=== PATIENT | male | born 1950 | race Caucasian/White ===

== ENCOUNTER 2020-08-17 16:07 | Outpatient (CLI) | payer MEDICARE, OTHER | END 2020-08-17 16:08 | disposition critical access hospital (66) | LOC: EMS 16:07 | DX: R41.82 Altered mental status, unspecified (principal) | CPT/HCPCS: A0425; A0429 ==

== ENCOUNTER 2020-08-17 16:22 | Emergency (ER) | payer MEDICARE, OTHER ==
--- NOTE | 2020-08-17 16:42 | ED Physician Documentation ---
PD HPI ALTERED MENTAL STATUS - Stated complaint Stated Complaint: AMS - Chief complaint Chief Complaint: Neuro - History obtained from History obtained from: Patient, EMS - Additional information Additional information: 69-year-old gentleman presents by ambulance. History is difficult due to aphasia. No prior records in our computer system. He says he has been like this for 8 days. He complains of word finding difficulty confusion and headache. He seems to think it started after he was exposed to chlorine fumes when he was cleaning a pool, again all of this history is a little suspect becau se of difficulty in history making taking. Evidently then he went to an urgent care and was referred here for further evaluation and treatment. Review of Systems Constitutional: reports: Reviewed and negative Eyes: reports: Reviewed and negative Ears: reports: Reviewed and negative Nose: reports: Reviewed and negative Throat: reports: Reviewed and negative Cardiac: reports: Reviewed and negative Respiratory: reports: Reviewed and negative PD ED PE NORMAL - Vitals Vital signs reviewed: Yes - General General: No acute distress, Other (He is alert and oriented to person, when asked him the month and date he states it is July, he cannot come up with a year but then spells July. He is clearly frustrated by his aphasia.) - HEENT HEENT: PERRL, EOMI - Neck Neck: Supple, no meningeal sign, No bony TTP - Cardiac Cardiac: RRR, No murmur - Respiratory Respiratory: No respiratory distress, Clear bilaterally - Abdomen Abdomen: Non tender - Back Back: No CVA TTP, No spinal TTP - Derm Derm: Normal color, Warm and dry - Extremities Extremities: No edema, No calf tenderness / cord - Neuro Eye Opening: Spontaneous Motor: Obeys Commands Verbal: Confused GCS Score: 14 NIHSS - Time Time: 16:30 - Level of Consciousness Level of consciousness: (0) Alert, Keenly responsive LOC Questions: (1) Answers one Q correctly LOC Commands: (0) Performs both correctly - Gaze Best Gaze: (0) Normal - Visual Visual: (0) No loss - Facial Palsy Facial Palsy: (0) Normal, symmetrical movement - Motor Arms (both separate) Motor Arm (right): (0) No drift Motor Arm (left): (0) No drift - Motor Legs (both separate) Motor Leg (right): (0) No drift Motor Leg (left): (0) No drift - Limb Ataxia Limb Ataxia: (0) Absent - Sensory Sensory: (0) Normal - Best Language Best Language: (2) Severe aphasia - Dysarthria Dysarthria: (0) Normal - Extinction and Inattention (formally neg Extinction and inattention: (0) No abnormality - Total Score/Results Total Score/Result: 3 Results - Vitals Vitals: Vital Signs - 24 hr 08/17/20 08/17/20 08/17/20 16:24 16:27 16:30 Temperature 37.1 C Heart Rate 70 73 73 Respiratory 21 14 14 Rate Blood Pressure 173/104 H 172/103 H 173/104 H O2 Saturation 96 96 96 08/17/20 08/17/20 08/17/20 17:06 17:10 17:30 Temperature Heart Rate 73 73 73 Respiratory 20 22 20 Rate Blood Pressure 169/104 H 169/104 H 180/96 H O2 Saturation 96 97 96 08/17/20 08/17/20 08/17/20 17:32 17:33 17:41 Temperature Heart Rate 72 71 67 Respiratory 19 20 23 Rate Blood Pressure 166/125 H 180/96 H 160/97 H O2 Saturation 96 96 96 08/17/20 08/17/20 08/17/20 17:44 17:48 17:49 Temperature Heart Rate 73 81 78 Respiratory 14 21 18 Rate Blood Pressure 166/97 H 156/90 H 154/84 H O2 Saturation 94 95 96 08/17/20 17:54 Temperature Heart Rate 81 Respiratory 80 H Rate Blood Pressure 141/87 H O2 Saturation 27 L Oxygen O2 Source Room air - Labs Labs: Laboratory Tests 08/17/20 08/17/20 08/17/20 16:48 16:48 16:48 WBC 7.6 RBC 5.04 Hgb 14.7 Hct 44.8 MCV 88.9 MCH 29.2 MCHC 32.8 RDW 14.1 Plt Count 325 MPV 9.3 Neut # (Auto) 4.3 Lymph # (Auto) 2.2 [place] # (Auto) 0.8 Eos # (Auto) 0.3 Baso # (Auto) 0.0 Absolute Nucleated RBC 0.00 Nucleated RBC % 0.0 PT INR Sodium 136 Potassium 3.7 Chloride 97 L Carbon Dioxide 25 Anion Gap 14.0 H BUN 16 Creatinine 1.0 Estimated GFR (MDRD) 74 L Glucose 111 H Calcium 9.1 Magnesium 2.1 Total Bilirubin 0.9 AST 26 ALT 19 Alkaline Phosphatase 84 Total Protein 7.7 Albumin 4.4 Globulin 3.3 Albumin/Globulin Ratio 1.3 TSH 2.44 Ethyl Alcohol < 5.0 08/17/20 17:12 WBC RBC Hgb Hct MCV MCH MCHC RDW Plt Count MPV Neut # (Auto) Lymph # (Auto) [place] # (Auto) Eos # (Auto) Baso # (Auto) Absolute Nucleated RBC Nucleated RBC % PT 13.9 H INR 1.3 H Sodium Potassium Chloride Carbon Dioxide Anion Gap BUN Creatinine Estimated GFR (MDRD) Glucose Calcium Magnesium Total Bilirubin AST ALT Alkaline Phosphatase Total Protein Albumin Globulin Albumin/Globulin Ratio TSH Ethyl Alcohol PD MEDICAL DECISION MAKING - ED course ED course: -year-old gentleman presents with acute word finding difficulties and complaints of headache. Neurologic exam mostly with word finding difficulties, GCS waxing and waning between [address] of the brain showing a 2.6 x 3.5 x 2.2 left temporal intraparenchymal hemorrhage with likely some other smaller areas of edema and subarachnoid hemorrhage. He was started on a nicardipine drip for blood pressure control. He was accepted to [facility] by Dr. Alzia Jay at 6 PM. [place] were completed and [facility] was activated. - Critical Care Time(min): 60 Time Includes: Direct patient care, Review records, Reassess patient, Document care, Coordinate care, Medical consult Data interpretation: Labs, Pulse ox Procedures excluded from critical care time: EKG Departure - Departure Disposition: 02 Transfer Acute Care Hosp Clinical Impression: Intraparenchymal hemorrhage of brain Condition: Critical
[2020-08-17] MEDS ORDERED: IOVERSOL 320 100 ML VIAL IVP ONE ×2 (16:48→17:15)
[2020-08-17 16:57] LABS: BASOPHILS % (AUTO) 0.5 %; EOSINOPHILS # (AUTO) 0.3 10^3/uL (0.0-0.7); EOSINOPHILS % (AUTO) 3.4 %; HCT - HEMATOCRIT 44.8 % (42.0-52.0); HGB - HEMOGLOBIN 14.7 g/dL (14.0-18.0); LYMPHOCYTES # (AUTO) 2.2 10^3/uL (1.5-3.5); LYMPHOCYTES % (AUTO) 28.4 %; MEAN CORPUSCULAR HEMOGLOBIN 29.2 pg (27.0-31.0); MEAN CORPUSCULAR HGB CONC 32.8 g/dL (32.0-36.0); MEAN CORPUSCULAR VOLUME 88.9 fL (80.0-94.0); MEAN PLATELET VOLUME 9.3 fL (7.4-11.4); MONOCYTES # (AUTO) 0.8 10^3/uL (0.0-1.0); MONOCYTES % (AUTO) 10.3 %; NEUTROPHILS # (AUTO) 4.3 10^3/uL (1.5-6.6); NEUTROPHILS % (AUTO) 57.3 %; PLT - PLATELET COUNT 325 10^3/uL (130-450); RED BLOOD COUNT 5.04 10^6/uL (4.70-6.10); RED CELL DISTRIBUTION WIDTH 14.1 % (12.0-15.0); WHITE BLOOD COUNT 7.6 x10^3/uL (4.8-10.8)
[2020-08-17 17:06] LABS: ALBUMIN 4.4 g/dL (3.2-5.5); ALBUMIN/GLOBULIN RATIO 1.3 (1.0-2.2); ALKALINE PHOSPHATASE 84 IU/L (42-121); ALT ALANINE AMINOTRANSFERASE 19 IU/L (10-60); AST ASPARTATE AMINOTRANSFERASE 26 IU/L (10-42); BILIRUBIN,TOTAL 0.9 mg/dL (0.2-1.0); BUN - BLOOD UREA NITROGEN 16 mg/dL (6-20); CALCIUM 9.1 mg/dL (8.5-10.3); CARBON DIOXIDE - CO2 25 mmol/L (21-32); CHLORIDE 97 mmol/L (101-111); ETOH - ETHANOL < 5.0 mg/dL; GFR - MDRD 74 (>89); GLUCOSE 111 mg/dL (70-100); MAGNESIUM 2.1 mg/dL (1.7-2.8); POTASSIUM 3.7 mmol/L (3.5-5.0); SODIUM 136 mmol/L (135-145); TOTAL PROTEIN 7.7 g/dL (6.7-8.2)
[2020-08-17 17:28] LABS: INR 1.3 (0.8-1.2); PT - PROTHROMBIN TIME 13.9 secs (9.9-12.6)
--- NOTE | 2020-08-17 17:33 | CT Report ---
PROCEDURE: ANGIO HEAD W/WO INDICATIONS: cva sx CONTRAST: IV CONTRAST: Optiray 320 ml: 80 PO CONTRAST: *NO PO CONTRAST TECHNIQUE: Precontrast 4.5 mm thick angled axial sections acquired from the foramen magnum to the vertex. Afte r the administration of intravenous contrast, 1 mm thick sections acquired through the [place] of [place] is. Postcontrast 4.5 mm thick sections then re-acquired from the foramen magnum to the vertex. 3-di mensional fiwmevl-cjsjptcek-qoqjzdcwif (MIP) and/or volume rendering reformats were acquired of the c entral intracranial vasculature. For radiation dose reduction, the following was used: automated ex posure control, adjustment of mA and/or kV according to patient size. COMPARISON: CTA neck from the same date FINDINGS: Image quality: Excellent. Anterior circulation: Intracranial internal carotid arteries are normal in size and flow. The flow within the paired anterior cerebral arteries is normal and symmetric. The flow within the middle cer ebral arteries is normal and symmetric. The anterior communicating artery is seen. No aneurysms are seen. Posterior circulation: Visualized portions of the vertebral arteries demonstrate normal caliber, and join to form a normal appearing basilar artery. Flow within the posterior cerebral arteries is norm al and symmetric. No aneurysms are seen. CSF spaces: Temporal horn of left lateral ventricle is compressed by subjacent parenchymal hematoma. Ventricles otherwise normal in size. There is mild midline shift measuring approximately 4 mm. Basal cisterns are patent. No extra-axial fluid collections. Brain: There is an acute parenchymal hemorrhage involving the left temporal lobe measuring approximat wimler 2.6 x 3.5 x 2.2 cm. There is associated vasogenic edema and mass effect on the temporal horn of t he left lateral ventricle. There is questionable mild narrowing of the left ambient cistern. There is also subtle parenchymal hemorrhage involving the left occipital lobe and possible subarachnoid hemor rhage. No mass lesions are identified. Age-related volume loss and mild small vessel ischemic change. Skull and face: Calvarium and facial bones appear intact, without suspicious lesions. Sinuses: Visualized sinuses and mastoids are clear. IMPRESSION: 1. 3.5 cm maximum diameter left anterior temporal parenchymal hematoma with vasogenic edema and mass effect on the temporal horn of the left lateral ventricle. There is mild narrowing of the left ambien t cistern and minimal midline shift. 2. Subtle left occipital parenchymal hematoma and probable subarachnoid hemorrhage. 3. No arterial vascular abnormalities identified. Above discussed with emergency Department on 08/17/2020 at [address] [place] [address] Dr. Rehana delacruz was aware of the parenchymal hemorrhage, and was in the process of notifying [facility]. Reviewed by: Andrew Hatfield MD on 08/17/2020 4:32 PM AKSULY Approved by: Andrew Hatfield MD on 08/17/2020 4:32 PM AKDT Station ID: [id number]
--- NOTE | 2020-08-17 17:34 | XRAY Report ---
PROCEDURE: Chest 1 View X-Ray INDICATIONS: ams TECHNIQUE: One view of the chest was acquired. COMPARISON: None FINDINGS: Surgical changes and devices: Right shoulder arthroplasty. Lungs and pleura: No pleural effusions or pneumothorax. Mild patchy bilateral perihilar and basilar opacity. Mediastinum: Mediastinal contours appear normal. Heart size is normal. Bones and chest wall: No suspicious bony lesions. Overlying soft tissues appear unremarkable. IMPRESSION: Mild bilateral pneumonia versus atelectasis. Reviewed by: Tiffanie Rashid MD on 08/17/2020 5:32 PM PDT Approved by: Tiffanie Rashid MD on 08/17/2020 5:32 PM PDT Station ID: [id number]
--- NOTE | 2020-08-17 17:43 | CT Report ---
PROCEDURE: ANGIO NECK W INDICATIONS: cva sx CONTRAST: IV CONTRAST: Optiray 320 ml: 80 PO CONTRAST: *NO PO CONTRAST TECHNIQUE: After the administration of intravenous contrast, 1.5 mm axial sections acquired from the aortic arch to the [place] of [place]. Coronal 3-D maximum intensity projection (MIP) and/or volume rendering ref ormats were then performed. For radiation dose reduction, the following was used: automated exposur e control, adjustment of mA and/or kV according to patient size. COMPARISON: CT angiogram of the head from the same day, which demonstrates the presence of a left te mporal lobe hematoma and a subtle left occipital hemorrhage and probable subarachnoid hemorrhage. FINDINGS: Image quality: Excellent. Carotid system: The great vessels demonstrate a conventional anatomy as they arise from the aortic a rch. The origins of the common carotid arteries appear patent. The common carotid arteries demonstr ate normal calibers and courses. The bifurcation regions appear normal bilaterally. The internal ca rotid arteries demonstrate normal caliber and course. Posterior circulation: The origins of the vertebral arteries appear patent. The more superior porti ons of the vertebral arteries demonstrate normal course and caliber. They join to form a normal appe aring basilar artery. Soft tissues: Visualized neck soft tissues demonstrate no suspicious abnormalities. The thyroid is normal in size and there are no incidental findings. Bones: No suspicious bony lesions. Visualized cervical spine appears normally aligned. Severe cervi miguel spondylosis. Canal stenosis at C5-C6 and C6-C7. Severe foraminal narrowing bilaterally at C5-C6, C6-C7, and C7-T1. IMPRESSION: 1. Please refer to separate report for discussion of CTA Head findings. Of note, there is a left temp oral lobe hematoma, a subtle left occipital hemorrhage, and probable subarachnoid hemorrhage 2. Unremarkable CTA neck. Widely patent internal carotids. 3. Severe cervical spondylosis with multilevel canal stenosis and foraminal stenosis. The estimate of stenosis included in the report of the imaging study was calculated using the NASCET method CLINICAL RECOMMENDATION STATEMENTS: In patients <35 years with an ITN detected on CT, MRI, or extrathyroidal ultrasound, the Committee re commends further evaluation with dedicated thyroid ultrasound if the nodule is ?1 cm and has no suspi cious imaging features, and if the patient has normal life expectancy. In patients ?35 years with an ITN detected on CT, MRI, or extrathyroidal ultrasound, the Committee re commends further evaluation with dedicated thyroid ultrasound if the nodule is ?1.5 cm and has no yoel picious imaging features, and if the patient has normal life expectancy. (ACR, 2014) Reviewed by: Andrew Hatfield MD on 08/17/2020 4:36 PM MANAV Approved by: Andrew Hatfield MD on 08/17/2020 4:36 PM MANAV Station ID: [id number]
[2020-08-17] MEDS ORDERED: CLEVIDIPINE BUTYRATE 25 MG/50 ML BOTTLE IV SCH (18:00)
[2020-08-17 18:03] VITALS: BP 148/81
[2020-08-17 18:08] LABS: B. PARAPERTUSSIS- RESP PCR PAN NOT DETECTED; B. PERTUSSIS- RESP PCR PANEL NOT DETECTED; C. PNEUMONIAE- RESP PCR PANEL NOT DETECTED; CORONAVIRUS 229E-RESP PCR NOT DETECTED; CORONAVIRUS HKU1-RESP PCR NOT DETECTED; CORONAVIRUS NL63-RESP PCR NOT DETECTED; CORONAVIRUS OC43-RESP PCR NOT DETECTED; HUMAN METAPNEUMOVIRUS NOT DETECTED; INFLUENZA A- RESP PCR PANEL NOT DETECTED; INFLUENZA B - RESP PCR PANEL NOT DETECTED; M. PNEUMONIAE- RESP PCR PANEL NOT DETECTED; PARAINFLUENZA VIRUS 1 NOT DETECTED; PARAINFLUENZA VIRUS 2 NOT DETECTED; PARAINFLUENZA VIRUS 3 NOT DETECTED; PARAINFLUENZA VIRUS 4 NOT DETECTED; RHINOVIRUS/ENTEROVIRUS NOT DETECTED; RSV- RESP PCR PANEL NOT DETECTED; SARS-CoV-2 -RESP PCR PANEL NOT DETECTED
[2020-08-17 18:32] LABS: MUDS CUTOFF CONCENTRATIONS CUTOFF CONC BELOW:
[2020-08-17 18:49] LABS: AMPHETAMINE SCREEN,URINE NEGATIVE (NEGATIVE); BARBITURATE SCREEN,UR NEGATIVE (NEGATIVE); BENZODIAZEPINES SCREEN, URINE NEGATIVE (NEGATIVE); COCAINE SCREEN URINE NEGATIVE (NEGATIVE); METHADONE SCREEN, URINE NEGATIVE (NEGATIVE); METHAMPHETAMINES SCREEN, URINE NEGATIVE (NEGATIVE); OPIATE SCREEN, URINE NEGATIVE (NEGATIVE); OXYCODONE SCREEN, URINE NEGATIVE (NEGATIVE); PROPOXYPHENE SCREEN, URINE NEGATIVE (NEGATIVE); THC CANNABINOID SCREEN, URINE NEGATIVE (NEGATIVE); TRICYCLIC ANTIDEPRESSANT,URINE NEGATIVE (NEGATIVE)
== END 2020-08-17 18:27 | disposition short-term general hospital (02) ==
LOC: ED 16:22
DX: I61.8 Other nontraumatic intracerebral hemorrhage (principal); I60.9 Nontraumatic subarachnoid hemorrhage, unspecified; R47.01 Aphasia; R41.0 Disorientation, unspecified; R29.703 NIHSS score 3; R03.0 Elevated blood-pressure reading, without diagnosis of hypertension; R91.8 Other nonspecific abnormal finding of lung field; Z20.822 Contact with and (suspected) exposure to COVID-19
CPT/HCPCS: 36415; 70496; 70498; 71045; 80053; 80306; 83735; 84443; 85025; 85610; 87631; 93005; 96365; 99285; 99291; C9248; G0480; Q9967; 0202U; 80320

== ENCOUNTER 2023-01-27 17:10 | Outpatient (CLI) | payer MEDICARE, OTHER | END 2023-01-27 17:11 | disposition short-term general hospital (02) | LOC: EMS 17:10 | DX: R41.0 Disorientation, unspecified (principal); R46.4 Slowness and poor responsiveness; R40.0 Somnolence; I10 Essential (primary) hypertension; R47.81 Slurred speech | CPT/HCPCS: A0425; A0427 ==